=== PATIENT | male | born 1995 | race Asian ===

== ENCOUNTER 2024-02-13 08:05 | Outpatient (CLI) | payer BC | END 2024-02-13 08:06 | disposition home or self-care (01) | LOC: CSHSLEEP 08:05 | PROVIDERS: ATTEND Pediatrics | DX: G47.9 Sleep disorder, unspecified (principal); R53.83 Other fatigue; I10 Essential (primary) hypertension; G47.33 Obstructive sleep apnea (adult) (pediatric) | CPT/HCPCS: 95810 ==